=== PATIENT | male | born 1985 | race Caucasian/White ===

== ENCOUNTER 2020-09-02 07:54 | Outpatient (CLI) | payer BC, SELFPAY | END 2020-09-02 07:55 | disposition home or self-care (01) | LOC: ANHCOVIDVC 07:54 | PROVIDERS: PCP Family Medicine | DX: Z23 Encounter for immunization (principal) | CPT/HCPCS: 0001A; 91300 ==

== ENCOUNTER 2020-09-23 07:58 | Outpatient (CLI) | payer BC, SELFPAY | END 2020-09-23 07:59 | disposition home or self-care (01) | LOC: ANHCOVIDVC 07:58 | PROVIDERS: PCP Family Medicine | DX: Z23 Encounter for immunization (principal) | CPT/HCPCS: 0002A; 91300 ==

== ENCOUNTER 2022-01-27 13:45 | Emergency (ER) | payer BC, SELFPAY ==
--- NOTE | 2022-01-27 14:09 | ED.URI ---
HPI - URI/Sore Throat General Chief Complaint: Ear Stated Complaint: right ear pain Time Seen by Provider: 01/27/22 14:26 Source: patient and RN notes reviewed Mode of arrival: ambulatory Limitations: no limitations History of Present Illness HPI Narrative: 36-year-old male presents with concern for ear pain. He reports usually once a year he gets wax stuck in his ear and needs it cleaned out. Reports his ear feels clogged, however it is also painful, usually is not painful. He denies drainage from the ear. He denies upper respiratory symptoms, hearing changes, fever. MD elicited complaint: other (ear pain) Related Data Allergies Allergy/AdvReac Type Severity Reaction Status Date / Time No Known Allergies Allergy Unknown Other Verified 01/27/22 14:18 Review of Systems Review of Systems: CONSTITUTIONAL: Denies malaise, chills, sweats, or fever. EYES: Denies visual changes, redness, or discharge. ENT: Denies rhinorrhea, congestion, sinus pain, and sore throat. Reports right ear pain and fullness CARDIOVASCULAR: Denies chest pain, palpitations, or edema. RESPIRATORY: Denies cough. Denies dyspnea. GASTROINTESTINAL: Denies abdominal pain, nausea, vomiting, diarrhea SKIN: Denies rash or itching. MUSCULOSKELETAL: Denies myalgia. NEUROLOGIC: Denies headache. All systems reviewed & are unremarkable except as noted in HPI and below PMFSH Social History Social History Smoking status: Former smoker Smoking end date: 06/19/13 Alcohol intake: current Comments At time of signature, agree with nursing past medical, surgical, social and family history. There is no relevant family history pertinent to the presenting complaint Exam Narrative: GENERAL: Well-appearing, well-nourished, and in no acute distress. HEAD: Normocephalic EYES: PERRLA, conjunctivae clear ENT: Nares clear. Mucous membranes moist. Left TM pearly cunningham with sharp light reflex, right TM not visible due to excess cerumen; right tragal tenderness with edema, erythema, tenderness to the opening of the ear canal, involving soft tissue, ear canal erythematous. NECK: Supple. No lymphadenopathy CHEST: No respiratory distress, speaks in full sentences. HEART: Regular rate and rhythm. No murmur heard. SKIN: Warm, dry, no rash. NEURO: Alert and oriented x3. PSYCH: Normal mood and affect Course Course Emergency Course: Patient is aware of diagnosis, understands and agrees to treatment plan. Anticipatory guidance given. Patient agrees to follow-up as directed and is aware of reasons to seek care at the emergency department. Portions of this record may have been created with voice recognition software Level of Care: Express Care Visit Vital Signs Vital signs: Reviewed. MDM - URI/Sore Throat MDM Narrative Medical decision making narrative: Differential diagnosis considered: Oh virus, strep pharyngitis, allergic rhinitis, upper respiratory tract infection, sinusitis, rhinosinusitis, nasopharyngitis. viral pharyngitis, otitis media, otitis externa, pneumonia, bronchitis, viral cough syndrome, viral syndrome, and influenza. Exam findings show no acute concerns or changes; patient is non-toxic appearing and is in no distress. Patient is appropriate for outpatient treatment and follow-up. Lab Data Attestation: I reviewed the patient's lab results. Critical Care Time Critical Care Time Critical Care Time: No Discharge Plan Discharge Clinical Impression: Soft tissue infection, Otitis externa Patient Disposition: Home, Self-Care Condition: Stable Instructions: Antibiotic Form, How to Use Ear Drops (ED) Additional Instructions: Take antibiotics as directed. Use eardrops as directed Recommend alternate ibuprofen and acetaminophen as directed on the bottle to reduce fever, pain Please schedule a follow-up visit with your personal physician for further evaluation and treatment within 3-5days. If your symptoms persist, change or worsen significantly b
[2022-01-27 14:20] VITALS: BP 106/80; PULSE 70; RESP 16; TEMP 36.8; O2SAT 100
== END 2022-01-27 15:10 | disposition home or self-care (01) ==
PROVIDERS: Emergency Provider Nurse Practitioner
DX: H60.391 Other infective otitis externa, right ear (principal); H60.91 Unspecified otitis externa, right ear; Z87.891 Personal history of nicotine dependence
CPT/HCPCS: 99213; G0463

== ENCOUNTER 2023-08-15 12:05 | Emergency (ER) | payer BC, SELFPAY ==
[2023-08-15 12:14] VITALS: BP 124/72; PULSE 75; RESP 16; TEMP 36.7; O2SAT 98
--- NOTE | 2023-08-15 12:56 | ED.SKABFB ---
HPI - Skin/Abscess/Foreign Bdy General Chief complaint: Skin/Abscess/Foreign Body Stated complaint: Bug bite Time Seen by Provider: 08/15/23 12:40 Source: patient, RN notes reviewed and old records reviewed Mode of arrival: ambulatory Limitations: no limitations History of Present Illness HPI narrative: 38-year-old male presents to [facility] with complaints of red swelling area to the left upper torso under axillary side of nipple over edge of tattoo since Monday. Patient reports tht laith was initially tender but not now. Patient reports that minimal redness continues to area and is a little warm to touch. Patient denies any known insect bite to area no pustule formation noted,no fluctuance of tissue. MD complaint: lesion (left under axillary side of nipple line over top edge of tattoo) Onset (ago): day(s) (5) Severity: mild Treatments prior to arrival: none Related Data Allergies Allergy/AdvReac Type Severity Reaction Status Date / Time No Known Allergies Allergy Unknown Other Verified 08/15/23 12:27 Review of Systems Review of Systems: CONSTITUTIONAL: Denies fever, chills, or sweats. EYES: Denies visual changes, redness, or discharge. ENT: Denies rhinorrhea, congestion, sore throat, or otalgia. CARDIOVASCULAR: Denies chest pain, palpitations, or edema. RESPIRATORY: Denies cough or dyspnea. GASTROINTESTINAL: Denies abdominal pain, nausea, vomiting, or diarrhea. GENITOURINARY: Denies dysuria or hematuria. SKIN: Denies rash or itching. raised light red area to upper torso axillary side of nipple line over edge of old tattoo. no fluctuance of tissue. MUSCULOSKELETAL: Denies back pain, joint pain, or myalgia. NEUROLOGIC: Denies headache, numbness, or weakness. PSYCHIATRIC: Denies anxiety or depression. All systems reviewed & are unremarkable except as noted in HPI and below PMFSH Surgical History Surgical History (Updated 08/17/23 @ 10:34 by Mallory Vizcarra NP) S/P wisdom tooth extraction Social History Social History Smoking status: Former smoker Smoking end date: 06/19/13 Alcohol intake: current Comments At time of signature, agree with nursing past medical, surgical, social and family history. There is no relevant family history pertinent to the presenting complaint Exam Narrative: GENERAL: Well-appearing, well-nourished, and in no acute distress. HEAD: Normocephalic, atraumatic. EYES: PERRLA and EOMI. ENT: Nares clear, no rhinorrhea or epistaxis. Mucous membranes moist. NECK: Supple. no lymphadenopathy CHEST: Clear to auscultation. No respiratory distress.SAO2 98% on room air HEART: Regular rate and rhythm. No murmur heard. Normal peripheral pulses. ABDOMEN: Soft, nontender, nondistended, normal active bowel sounds. EXTREMITIES: Normal range of motion. No edema. SKIN: Warm, dry, no rash. [id number] area of slight swelling with minimall redness noted upper torso axillary side of nipple over edge of old tatoo, no pustule formation, no fluctuance of tissue nontender slight warmth to area. NEURO: No focal deficits. Alert and oriented x3. Course Course Emergency Course: Patient is aware of diagnosis, understands and agrees to treatment plan.? Anticipatory guidance given.? Patient agrees to follow-up as directed and is aware of reasons to seek care at the emergency department. Portions of this record may have been created with voice recognition software Level of Care: Express Care Visit Vital Signs Vital signs: Vital Signs Temperature 36.7 C 08/15/23 12:14 Pulse Rate 75 08/15/23 12:14 Respiratory Rate 16 08/15/23 12:14 Blood Pressure 124/72 08/15/23 12:14 Pulse Oximetry 98 08/15/23 12:14 Temperature 36.7 C 08/15/23 12:14 Pulse Rate 75 08/15/23 12:14 Respiratory Rate 16 08/15/23 12:14 Blood Pressure 124/72 08/15/23 12:14 Pulse Oximetry 98 08/15/23 12:14 Reviewed MDM - Skin/Abscess/Foreign Bdy Differe
== END 2023-08-15 13:14 | disposition home or self-care (01) ==
PROVIDERS: Emergency Provider Registered Nurse
DX: L03.313 Cellulitis of chest wall (principal)
CPT/HCPCS: 99213; G0463